=== PATIENT | female | born 1980 | race Caucasian/White ===

== ENCOUNTER 2024-10-28 13:20 | Outpatient (CLI) | payer OTHER, SELFPAY ==
--- NOTE | 2024-10-28 14:52 | W.ANESCHARGE ---
Anesthesia Charges Start Date/Time Anesthesia Start Date: 10/28/24 Anesthesia Start Time: 14:37 Stop Date/Time Anesthesia Stop Date: 10/28/24 Anesthesia Stop Time: 14:53
--- NOTE | 2024-10-28 14:55 | W.ANESCHARGE ---
Anesthesia Charges Start Date/Time Anesthesia Start Date: 10/28/24 Anesthesia Start Time: 14:37 Stop Date/Time Anesthesia Stop Date: 10/28/24 Anesthesia Stop Time: 14:53
== END 2024-10-28 13:21 | disposition home or self-care (01) ==
LOC: OP CLINIC 13:28
PROVIDERS: PCP Physician Assistant; Visit Provider Internal Medicine Gastroenterology
DX: R10.13 Epigastric pain (principal); R11.2 Nausea with vomiting, unspecified; K31.89 Other diseases of stomach and duodenum
CPT/HCPCS: 00731; 43239; 88305; J2405; J2704